=== PATIENT | female | born 1960 | race Caucasian/White ===

== ENCOUNTER 2016-07-27 06:42 | Emergency (ER) | payer OTHER ==
[~2016-07-27] VITALS: Ht 154.9 cm; Wt 81.6 kg
[~2016-07-27 06:42] MED LIST: ASPIRIN EC81 M1 PO; AZELASTINE137 MCG/0. NASB; COZAAR50 M1 PO; FIORICET 50-301 EACH PO; GLUCOTROL XL10 MG PO; HYDROCHLOROTHIA25 M1 PO; IMITREX25 M1 PO; METFORMIN HCL500 M3 PO; PROVENTIL HFA6.7 GM INH; QVAR8.7 G1 INH; TRAZODONE HCL50 M1 PO; VENLAFAXINE H37.5 M3 PO; ZOCOR10 M1 PO
[2016-07-27 06:51] VITALS: BP 147/85
--- NOTE | 2016-07-27 07:16 | ED ANKLE/FOOT INJURY COMPLAINT ---
History of Present Illness General Chief Complaint: Foot or Ankle Injury Stated Complaint: RIGHT FOOT PAIN, NO KNOWN INJURY PER PT Source: patient Exam Limitations: no limitations Vital Signs & Intake/Output Vital Signs & Intake/Output Vital Signs Date Time Temp Pulse Resp B/P B/P Pulse O2 O2 Flow FiO2 Mean Ox Delivery Rate 07/27 0651 96.4 88 18 147/85 96 Room Air Allergies Coded Allergies: Penicillins (ANAPHYLAXIS 12/20/15) ciprofloxacin (From CIPRO) (ANAPHYLAXIS 12/20/15) sulfamethoxazole (From BACTRIM) (ANAPHYLAXIS 12/20/15) trimethoprim (From BACTRIM) (ANAPHYLAXIS 12/20/15) Reconcile Medications Albuterol Sulfate (Proventil Hfa) 6.7 GM HFA.AER.AD 2 PUF INH PRN ASTHMA ( Reported) Aspirin (Ecotrin*) 81 MG TABLET.DR 1 TAB PO DAILY HEART/BLOOD (Reported) Azelastine HCl 137 MCG/0.137 ML SPRAY.PUMP 1 SPRAY NASB AD ALLERGIES ( Reported) Beclomethasone Dipropionate (QVAR) 8.7 GM AER.W.ADAP 2 PUF INH BID ASTHMA ( Reported) Butalb/Acetaminophen/Caffeine (Fioricet 50-300-40 MG Capsule) 1 EACH CAPSULE 1 TAB PO Q12 PRN HEADACHE Glipizide (Glucotrol XL) 10 MG TAB.ER.24 1 TAB PO DAILY DIABETES (Reported) Hydrochlorothiazide 25 MG TABLET 1 TAB PO DAILY BP (Reported) Losartan Potassium (Cozaar) 50 MG TABLET 1 TAB PO DAILY BP (Reported) Metformin HCl 500 MG TABLET 1 TAB PO BID DIABETES (Reported) Simvastatin (Zocor*) 10 MG TABLET 1 TAB PO QPM CHOLESTEROL (Reported) Sumatriptan Succinate (Imitrex) 25 MG TABLET 1 TAB PO AD PRN MIGRAINE ( Reported) Trazodone HCl 50 MG TABLET 1 TAB PO QHS SLEEP (Reported) Venlafaxine HCl 37.5 MG TABLET 1 TAB PO BID MENOPAUSE (Reported) Triage Note: PT TO ED C/O R FOOT THROBBING PAIN. PT STATES SHE HAS NO KNOWN INJURY TO FOOT. MIGHT HAVE STEPPED DOWN ON CURB HARD LAST WEEK BUT THAT IS THE ONLY INJURY ABLE TO BE THOUGHT OF. Triage Nurses Notes Reviewed? yes HPI: Patient presents for evaluation of right foot pain. Pain began gradually about one week ago but has gotten progressively worse. The pain has been constant and worsens with ambulation and palpation. There is been no apparent soft tissue swelling or erythema or ecchymoses in the area. Patient tried ibuprofen last night without relief. She denies any known trauma but states that she stepped down off a curb rather harshly in the middle of last week. She denies any prior episodes of this pain. Past History Travel History Traveled to [place] past 21 day No Medical History Any Pertinent Medical History? see below for history Cardiovascular: hypertension Respiratory: asthma Endocrine: diabetes Surgical History Surgical History: non-contributory Psychosocial History What is your primary language Guyanese Tobacco Use: Never used Family History Hx Contributory? No Review of Systems Review of Systems Constitutional: Reports: no symptoms. EENTM: Reports: no symptoms. Respiratory: Reports: no symptoms. Cardiovascular: Reports: no symptoms. GI: Reports: no symptoms. Genitourinary: Reports: no symptoms. Musculoskeletal: Reports: see HPI. Skin: Reports: no symptoms. Neurological/Psychological: Reports: no symptoms. Hematologic/Endocrine: Reports: no symptoms. Immunologic/Allergic: Reports: no symptoms. All Other Systems: Reviewed and Negative Physical Exam Physical Exam Leg/Knee/Thigh Left: SEE BELOW Comments: Gen.: Well-nourished, well-developed, no acute respiratory distress. Head: Normocephalic, atraumatic. Eyes: Normal inspection bilaterally Ears: Normal inspection bilaterally Nose: Normal inspection, nasal cannula in place Throat/mouth : Moist mucosa Neck: Supple, full range of motion, no goiter Heart: Regular rate and rhythm Lungs: Quiet respirations Back: Normal range of motion Extremities: Right foot: Tenderness of the calcaneus without associated soft tissue swelling erythema or ecchymoses. Right foot is neurovascularly intact distally. Neurologic: Cranial nerves grossly intact, speech is clear Skin: warm and dry Psychiatric: Calm, cooperative, no apparent delusions or hallucinations Progress Differential Diagnosis: fracture, sprain, contusion, BONE SPUR Plan of Care: Orders Procedure Date/time Status XRY-FOOT COMPLETE, RIGHT 07/27 0648 Active Diagnostic Imaging: Discussed w/RAD: Radiology Read. Radiology Impression: PATIENT: CHEMA VELAZCO PRESENT AGE: 56 PATIENT ACCOUNT NO: [id number] : 58 LOCATION: [facility] ORDERING PHYSICIAN: SONYA WALKER MD SERVICE DATE: 07/27/16 EXAM TYPE: RAD - XRY-FOOT COMPLETE, R EXAMINATION: XR FOOT, RIGHT CLINICAL INFORMATION: Pain COMPARISON: None TECHNIQUE: AP, lateral, and oblique views of the right foot. FINDINGS: There is a moderate-sized plantar calcaneal spur. There is an oval well-corticated ossific density abutting the dorsal aspect of the navicular compatible or ossicle or ununited old fracture. Mild degenerative changes of the talonavicular joint. Minimal arthrosis of the first metatarsophalangeal joint. IMPRESSION: No acute abnormality. Calcaneal spur. Mild arthrosis of the talonavicular joint and first metatarsophalangeal joint. Ossicle versus old fracture navicular. DICTATED BY: GALA GONZALEZ MD DATE/TIME DICTATED:715 FUND CONTROLLER:CHAD DATE/TIME TRANSCRIBED:07/27/16715 CONFIDENTIAL, DO NOT COPY WITHOUT APPROPRIATE AUTHORIZATION. <Electronically signed in Other Vendor System> SIGNED BY: GALA GONZALEZ MD 07/27/16720 Departure Departure Disposition: HOME OR SELF CARE Condition: Stable Clinical Impression Primary Impression: Calcaneal spur, right Referrals: PATIENT HAS NO PRIMARY CARE DR (PCP/Family) Additional Instructions: Pad your heal well when ambulating. Voltaren as needed for pain. Follow-up with Dr. Ramirez for reevaluation and additional treatment of your heel bone spur. Notify your primary care doctor of this emergency department visit treatment plan. Return if any concerns or sudden worsening. Please note that there might be incidental findings in your evaluation that are unrelated to the current emergency department visit. Please notify your primary care doctor about this emergency department visit in order to obtain and review all of the testing performed so that these incidental findings can be monitored as needed. If you had an x-ray performed, please understand that some fractures may not be seen on the initial set of x-rays. If your symptoms persist you might need a repeat set of x-rays to check for such a fracture. If you had a laceration evaluated, please understand that foreign bodies such as glass or wood may not be visible to the naked eye or on plain x-rays. If the wound becomes red, swollen, increasingly more painful or if there is any drainage from the wound, please have it reevaluated by a physician for the possibility of a retained foreign body. Thank you for choosing the [facility] for your care. It was a pleasure to serve you today. Mike Quick M.D. [facility] Departure Forms: Customer Survey General Discharge Information Prescriptions: Current Visit Scripts Diclofenac Potassium 1 TAB PO TID PRN PAIN #30 TAB
--- NOTE | 2016-07-27 07:21 | RADIOLOGY REPORT ---
EXAMINATION: XR FOOT, RIGHT CLINICAL INFORMATION: Pain COMPARISON: None TECHNIQUE: AP, lateral, and oblique views of the right foot. FINDINGS: There is a moderate-sized plantar calcaneal spur. There is an oval well-corticated ossific density abutting the dorsal aspect of the navicular compatible or ossicle or ununited old fracture. Mild degenerative changes of the talonavicular joint. Minimal arthrosis of the first metatarsophalangeal joint. IMPRESSION: No acute abnormality. Calcaneal spur. Mild arthrosis of the talonavicular joint and first metatarsophalangeal joint. Ossicle versus old fracture navicular.
[2016-07-27] MEDS ORDERED: DICLOFENAC POTA50 M1 PO ×2 (07:43→07:44)
== END 2016-07-27 07:53 ==
LOC: ERH 06:42
DX: M77.31 Calcaneal spur, right foot (principal)
CPT/HCPCS: 73630-RT